=== PATIENT | male | born 1950 | race Caucasian/White ===

== ENCOUNTER 2024-01-16 16:17 | Emergency (ER) | payer MEDICARE ==
[~2024-01-16] VITALS: Ht 172.7 cm; Wt 83.6 kg
[2024-01-16] MEDS ORDERED: LISI-894 PO ×2 (16:23→20:35)
[2024-01-16 19:42] LABS: BASOPHILS % (AUTO) 0.5 % (0.0-2.0); EOSINOPHILS % (AUTO) 0.4 % (1.0-6.0); HEMOGLOBIN 15.5 g/dL (13.5-17.5); LYMPHOCYTES # (AUTO) 1.2 K/uL (1.0-4.8); LYMPHOCYTES % (AUTO) 16.9 % (22.0-44.0); MEAN CORPUSCULAR HEMOGLOBIN 32.8 pg (26.0-34.0); MEAN CORPUSCULAR HGB CONC 33.6 G/dL (31.0-37.0); MEAN CORPUSCULAR VOLUME 98 fL (80-100); MONOCYTES # (AUTO) 1.1 K/uL (0.1-1.0); MONOCYTES % (AUTO) 14.5 % (2.0-9.0); NEUTROPHILS % (AUTO) 67.7 % (40.0-70.0); PLATELET COUNT (AUTO) 275 K/uL (150-450); RED BLOOD CELL COUNT(AUTO) 4.71 MIL/uL (4.50-5.90); RED CELL DISTRIBUTION WIDTH 13.2 % (11.5-14.5); WHITE BLOOD COUNT (AUTO) 7.4 K/uL (4.5-11.0)
[2024-01-16 19:51] LABS: ANION GAP 7 mmol/L (8-16); CALCIUM, TOTAL 9.3 mg/dL (8.8-10.5); CARBON DIOXIDE 29 mmol/L (22-29); CHLORIDE 99 mmol/L (98-107); CREATININE 0.96 mg/dL (0.60-1.30); GLOMERULAR FILTR. RATE CALC > 60 mL/min (>60); GLUCOSE,RANDOM 96 mg/dL (70-110); POTASSIUM 3.9 mmol/L (3.5-5.1); SODIUM SERUM 135 mmol/L (136-145); UREA NITROGEN, BLOOD 12 mg/dL (7-18)
[2024-01-16 20:30] VITALS: BP 145/99; PULSE 75; RESP 18; TEMP 97.3; O2SAT 100
[2024-01-16] MEDS ORDERED: PRED-554 PO (20:31)
[2024-01-16] MEDS ORDERED: ACET-66 PO (20:31)
[2024-01-16] MEDS ORDERED: VALA500T42 PO (20:31)
[2024-01-16] MEDS ORDERED: BACI28.410 TP (20:31)
== END 2024-01-16 20:57 | disposition home or self-care (01) ==
LOC: EMS 16:17
DX: B02.9 Zoster without complications (principal); I10 Essential (primary) hypertension
CPT/HCPCS: 80048; 85025; 99283